=== PATIENT | male | born 1955 | race Caucasian/White ===

== ENCOUNTER 2023-10-23 17:20 | Emergency (ER) | payer MEDICARE, OTHER ==
[~2023-10-23 17:20] MED LIST: LACTATED RINGERS 1,000 ML BAG ONE
[2023-10-23] MEDS ORDERED: HYDROmorphone 1 MG/ML 1 ML SYRINGE ONE (17:25)
[2023-10-23] MEDS ORDERED: LORazepam 2 MG/ML INJ ONE (17:26)
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
== END 2023-10-23 17:50 | disposition other institution (70) ==
LOC: EC 17:20
CPT/HCPCS: 71045; 93005; 96374; 96375; 99284